=== PATIENT | male | born 2000 | race African-American/Black ===

== ENCOUNTER 2019-09-18 08:16 | Emergency (ER) | payer OTHER ==
[~2019-09-18] VITALS: Ht 188 cm; Wt 83.5 kg
[2019-09-18] MEDS ORDERED: NS 1,000 ML IV ONE (09:00)
[2019-09-18] MEDS ORDERED: GI COCKTAIL 50ML BTL(HYOSCYAMINE/MAALOX/LIDOCAINE VISCOUS)(1:3:1) PO ONE (09:00)
[2019-09-18] MEDS ORDERED: ONDANSETRON 4MG/2ML VIAL (J2405) IV ONE (09:00)
[2019-09-18 09:17] LABS: BASO % 0.6 % (0.0-1.0); EOS # 0.2 10^3/uL (0.0-0.5); HEMATOCRIT 48.4 % (42.0-52.0); HEMOGLOBIN 15.5 g/dl (13.5-17.5); LYMPH # 1.8 10^3/uL (1.5-5.0); MEAN CORPUSCULAR HEMOGLOBIN 28.3 pg (27.0-33.0); MEAN CORPUSCULAR VOLUME 88.3 fl (80.0-96.0); MONO # 0.5 10^3/uL (0.0-0.8); MONO % 7.5 % (0.0-5.0); NEUTROPHILS % 60.7 % (36.0-66.0); PLATELET COUNT, AUTOMATED 245 10^3/uL (150-450); RED BLOOD COUNT 5.48 10^6/uL (4.30-6.10); WHITE BLOOD COUNT 6.6 10^3/uL (4.0-10.0)
[2019-09-18] MEDS ORDERED: ISOVUE-370 76% 100ML VIAL (Q9967) As Ordered ONE (09:19)
[2019-09-18 09:55] LABS: ALBUMIN 4.6 GM/DL (3.2-5.2); ALT/SGPT 24 U/L (12-78); BILIRUBIN,DIRECT < 0.1 MG/DL (0.0-0.2); BILIRUBIN,TOTAL 0.6 MG/DL (0.2-1.0); LIPASE 71 U/L (73-393); TOTAL PROTEIN 8.5 GM/DL (6.4-8.2)
--- NOTE | 2019-09-18 10:09 | REP ---
CT ABDOMEN AND PELVIS WITH IV CONTRAST: TECHNIQUE: Axial contrast enhanced images from the lung bases to the pubic symphysis using 100 mL Isovue 370 intravenous contrast material with multiplanar reformations. Visualized lung bases are clear. The liver demonstrates focal fatty infiltration anteriorly along the fissure for a ligamentum teres with no other significant abnormality. The gallbladder is grossly unremarkable. Spleen is normal in size with no intrinsic abnormality. The adrenal glands are normal. No pancreatic mass is seen. There is no hydronephrosis bilaterally. There is no abdominal aortic aneurysm. There is no adenopathy. There is no free air or free fluid. There is no bowel wall thickening. The appendix is normal. No pelvic mass is seen. Urinary bladder is not well distended and not well evaluated. IMPRESSION: No acute abnormalities detected. Electronically Signed by Damien Rodriguez MD 09/18/2019 10:32 A
[2019-09-18] MEDS ORDERED: SUCR1TA PO (10:24)
[2019-09-18 10:34] VITALS: BP 141/74
== END 2019-09-18 10:38 | disposition home or self-care (01) ==
LOC: M ED 08:16
DX: R10.13 Epigastric pain (principal); F17.200 Nicotine dependence, unspecified, uncomplicated
CPT/HCPCS: 74177; 80047; 80076; 81001; 83690; 85025; 93041; 96374; 99284; J2405; Q9967

== ENCOUNTER 2019-12-23 13:45 | Emergency (ER) | payer OTHER ==
[~2019-12-23] VITALS: Ht 188 cm; Wt 84.1 kg
[~2019-12-23 13:45] MED LIST: SUCR1TA PO
[2019-12-23] MEDS ORDERED: PANTOPRAZOLE 40MG VIAL (C9113 PER 1) IV ONE (14:15)
[2019-12-23] MEDS ORDERED: KETOROLAC 30 MG/ML 1ML VIAL IV ONE (14:15)
[2019-12-23 14:30] LABS: BASO % 0.4 % (0.0-1.0); EOS # 0.1 10^3/uL (0.0-0.5); EOS % 1.1 % (0.0-3.0); HEMATOCRIT 50.1 % (42.0-52.0); HEMOGLOBIN 16.6 g/dl (13.5-17.5); LYMPH # 1.6 10^3/uL (1.5-5.0); LYMPH % 19.1 % (24.0-44.0); MEAN CORPUSCULAR HEMOGLOBIN 28.8 pg (27.0-33.0); MEAN CORPUSCULAR HGB CONC 33.1 g/dl (32.0-36.5); MEAN CORPUSCULAR VOLUME 86.8 fl (80.0-96.0); MONO # 0.6 10^3/uL (0.0-0.8); MONO % 6.7 % (0.0-5.0); NEUTROPHILS # 5.9 10^3/uL (1.5-8.5); NEUTROPHILS % 72.5 % (36.0-66.0); PLATELET COUNT, AUTOMATED 276 10^3/uL (150-450); RED BLOOD COUNT 5.77 10^6/uL (4.30-6.10); WHITE BLOOD COUNT 8.2 10^3/uL (4.0-10.0)
[2019-12-23 15:04] LABS: ALBUMIN 4.8 GM/DL (3.2-5.2); BILIRUBIN,DIRECT 0.3 MG/DL (0.0-0.2); BILIRUBIN,TOTAL 0.9 MG/DL (0.2-1.0); TOTAL PROTEIN 8.3 GM/DL (6.4-8.2)
[2019-12-23 15:30] VITALS: BP 131/78
--- NOTE | 2019-12-23 15:42 | REP ---
Clinical: Right upper quadrant pain. Technique: Real time humphries scale ultrasound examination using curved array transducer. Findings: Liver and pancreas are normal in contour, size, echogenicity without focal hepatic or pancreatic lesion identified. Gallbladder demonstrates multiple small gallstones/gravel with mild wall thickening, but no pericholecystic fluid or biliary ductal dilatation. Common bile duct measures 3.7 mm diameter. Right kidney is normal in reniform shape without hydronephrosis and measures 11.1 x 5.1 x 3.7 cm. No ascites in the visualized right upper quadrant. Impression: 1. Cholelithiasis with mild gallbladder wall thickening. Findings are nonspecific and require clinical correlation. No biliary ductal dilatation. Electronically Signed by Jung Roman MD 12/23/2019 03:33 P
[2019-12-23] MEDS ORDERED: diphenhydrAMINE 50MG/ML VIAL (J1200) IV ONE (15:45)
== END 2019-12-23 15:57 | disposition home or self-care (01) ==
LOC: M ED 13:45
DX: K80.20 Calculus of gallbladder without cholecystitis without obstruction (principal)
CPT/HCPCS: 76705; 80047; 80076; 83690; 85025; 96374; 96375; 99284; C9113; J1885

== ENCOUNTER 2020-04-28 21:33 | Emergency (ER) | payer OTHER ==
[~2020-04-28] VITALS: Ht 188 cm; Wt 77.3 kg
[2020-04-28 21:34] VITALS: BP 144/92
[2020-04-29] MEDS ORDERED: KEFL500C17 PO (02:32)
== END 2020-04-28 22:17 | disposition left against medical advice (07) ==
LOC: M ED 21:33
DX: Z53.21 Procedure and treatment not carried out due to patient leaving prior to being seen by health care provider (principal)

== ENCOUNTER 2020-04-28 23:23 | Emergency (ER) | payer OTHER ==
[~2020-04-28] VITALS: Ht 188 cm; Wt 77.3 kg
--- NOTE | 2020-04-29 00:55 | REPVR ---
PROCEDURE INFORMATION: Exam: XR Left Hand Exam date and time: 04/29/2020 12:11 AM Age: 19 years old Clinical indication: Injury or trauma; Other: Broke glass in hand; Laceration; Left; Injury details: Lac in area of proximal 3rd/4th digits. Bb marker placed for final image TECHNIQUE: Imaging protocol: XR Left hand. Views: 3 or more views. COMPARISON: No relevant prior studies available. FINDINGS: Bones/joints: Negative ulnar variance with remodeling at the distal radioulnar articulation. No fracture. Soft tissues: Evidence of laceration of the base of the middle finger with minimal radiopaque foreign bodies at the ventral aspect of the proximal aspect of the proximal phalanx of the 3rd finger and 3rd metacarpophalangeal joint. These are punctate to 1x2 mm in size. IMPRESSION: 1. Laceration at the palmar base of the 3rd finger with several minimal radiopaque foreign bodies in the area. 2. Negative ulnar variance with remodeling of the distal radioulnar articulation. 3. No fractures. Electronically signed by: Yaron Grant On 04/29/2020 00:55:25 AM
[2020-04-29] MEDS ORDERED: LIDOCAINE 1% MDV 20ML VIAL SC ONE (01:45)
[2020-04-29] MEDS ORDERED: NEOSPORIN OINT 0.9 GM PKT TOP ONE (02:30)
[2020-04-29] MEDS ORDERED: CEPHALEXIN 500 MG CAP PO ONE (02:30)
[2020-04-29] MEDS ORDERED: KEFL500C17 PO (02:32)
[2020-04-29 02:45] VITALS: BP 142/85
--- NOTE | 2020-04-29 02:52 | REPVR ---
PROCEDURE INFORMATION: Exam: XR Left Hand Exam date and time: 04/29/2020 2:38 AM Age: 19 years old Clinical indication: Screening exam; Removal of glass frags; Additional info: Foreign body TECHNIQUE: Imaging protocol: XR Left hand. Views: 1 or 2 views. COMPARISON: CR Hand, complete LEFT 04/29/2020 12:04 AM FINDINGS: Bones/joints: Negative ulnar variance with remodeling of the distal radioulnar articulation. Soft tissues: Minimal radiopaque foreign bodies are again noted along the palmar aspect of the base of the middle finger and probably along the palmar aspect of the proximal index finger. The appearance is similar to a prior study. IMPRESSION: 1. Negative ulnar variance with remodeling of the distal radioulnar articulation. 2. Minimal radiopaque foreign bodies are noted along the ventral aspect of the proximal index and middle fingers and are similar to a study done earlier in the day. Electronically signed by: Yaron Grant On 04/29/2020 02:52:19 AM
--- NOTE | 2020-04-30 09:37 | ED PDOC ---
Post-Departure Follow-Up left hand xray faxed to [facility] for fu Master Duffy MD Apr 30, 2020 09:37
== END 2020-04-29 02:52 | disposition home or self-care (01) ==
LOC: M ED 23:23
DX: S61.412A Laceration without foreign body of left hand, initial encounter (principal); W25.XXXA Contact with sharp glass, initial encounter; Y92.009 Unspecified place in unspecified non-institutional (private) residence as the place of occurrence of the external cause; Y93.89 Activity, other specified; Y99.8 Other external cause status; F17.200 Nicotine dependence, unspecified, uncomplicated

== ENCOUNTER 2020-08-25 10:00 | Emergency (ER) | payer OTHER ==
[~2020-08-25] VITALS: Ht 190.5 cm; Wt 80.2 kg
[~2020-08-25 10:00] MED LIST changes: +KEFL500C17 PO
[2020-08-25] MEDS ORDERED: IBUP1TAB7 PO (10:14)
[2020-08-25] MEDS ORDERED: GI COCKTAIL 50ML BTL(HYOSCYAMINE/MAALOX/LIDOCAINE VISCOUS)(1:3:1) PO ONE (10:35)
[2020-08-25 10:55] LABS: BASO % 0.5 % (0.0-1.0); EOS # 0.2 10^3/uL (0.0-0.5); EOS % 2.9 % (0.0-3.0); HEMATOCRIT 44.9 % (42.0-52.0); HEMOGLOBIN 14.4 g/dl (13.5-17.5); LYMPH # 1.7 10^3/uL (1.5-5.0); LYMPH % 28.8 % (24.0-44.0); MEAN CORPUSCULAR HGB CONC 32.1 g/dl (32.0-36.5); MEAN CORPUSCULAR VOLUME 87.2 fl (80.0-96.0); MONO # 0.5 10^3/uL (0.0-0.8); MONO % 8.3 % (2.0-8.0); NEUTROPHILS # 3.5 10^3/uL (1.5-8.5); NEUTROPHILS % 59.3 % (36.0-66.0); PLATELET COUNT, AUTOMATED 249 10^3/uL (150-450); RED BLOOD COUNT 5.15 10^6/uL (4.30-6.10); WHITE BLOOD COUNT 5.9 10^3/uL (4.0-10.0)
--- NOTE | 2020-08-25 11:13 | REP ---
INDICATION: RUQ pain, known gallstones COMPARISON: None. TECHNIQUE: Real time humphries scale ultrasound examination using curved array transducer. FINDINGS: Gallbladder demonstrates multiple gallstones along with mild wall thickening to 3.7 mm diameter and associated sonographic Mendiola sign. There appears to be a stone lodged in the neck of the gallbladder. Common bile duct measures 3.6 mm diameter. Liver and visualized portions of the pancreas are normal. Right kidney is normal in reniform shape without hydronephrosis and measures 10.8 x 5.1 x 3.7 cm. No ascites in the visualized right upper quadrant. IMPRESSION: Cholelithiasis and findings suggesting acute cholecystitis. <Electronically signed by Jung Roman > 08/25/20 [id number]
[2020-08-25 11:30] LABS: ALBUMIN 4.6 GM/DL (3.2-5.2); ALT/SGPT 30 U/L (12-78); BILIRUBIN,DIRECT 0.1 MG/DL (0.0-0.2); BILIRUBIN,TOTAL 0.4 MG/DL (0.2-1.0); BLOOD UREA NITROGEN 12 MG/DL (7-18); CALCIUM LEVEL 9.4 MG/DL (8.5-10.1); CARBON DIOXIDE LEVEL 30 MEQ/L (21-32); CHLORIDE LEVEL 107 MEQ/L (98-107); CREATININE FOR GFR 1.05 MG/DL (0.70-1.30); GLOMERULAR FILTRATION RATE > 60.0 (>60); GLUCOSE, FASTING 97 MG/DL (70-100); LIPASE 106 U/L (73-393); POTASSIUM SERUM 4.9 MEQ/L (3.5-5.1); SODIUM LEVEL 140 MEQ/L (136-145); TOTAL PROTEIN 7.9 GM/DL (6.4-8.2)
--- NOTE | 2020-08-25 11:49 | REP ---
INDICATION: wheezing expiratory left upper and lower COMPARISON: None. TECHNIQUE: PA and lateral. FINDINGS: The mediastinum and cardiac silhouette are normal. The lung vasquez are clear and without acute consolidation, effusion, or pneumothorax. The skeletal structures are intact and normal. IMPRESSION: No acute cardiopulmonary process. <Electronically signed by Jung Roman > 08/25/20 [id number]
[2020-08-25 12:20] VITALS: BP 136/61
== END 2020-08-25 12:30 | disposition home or self-care (01) ==
LOC: M ED 10:00
DX: K80.70 Calculus of gallbladder and bile duct without cholecystitis without obstruction (principal); F17.210 Nicotine dependence, cigarettes, uncomplicated

== ENCOUNTER → 2020-09-15 | Outpatient (CLI) | payer OTHER ==
[~2020-09-15] MED LIST changes: +IBUP1TAB7 PO
== END ==
LOC: M LABSMTC 10:16
PROVIDERS: ATTEND Anesthesiology
DX: Z01.812 Encounter for preprocedural laboratory examination (principal)

== ENCOUNTER 2020-09-19 10:48 | Day surgery (SDC) | payer OTHER ==
[~2020-09-19] VITALS: Ht 188 cm; Wt 79.4 kg
[~2020-09-19 10:48] MED LIST changes: +LR 1,000 ML IV ONE; +MIDAZOLAM INJ 2MG/2ML VIAL (J2250 PER 1MG) As Ordered ONE; +fentaNYL 100 MCG/2 ML INJECTION (J3010) As Ordered ONE
[2020-09-19] MEDS ORDERED: LACRILUBE (AKWA TEARS) OPHTH OINT 3.5 GM As Ordered ONE (11:13)
[2020-09-19] MEDS ORDERED: ACETAMINOPHEN 1000MG 100ML IV BTL (OFIRMEV) (J0131 PER 10MG) As Ordered ONE (11:13)
[2020-09-19] MEDS ORDERED: ONDANSETRON 4MG/2ML VIAL As Ordered ONE (11:13)
[2020-09-19] MEDS ORDERED: SUGAMMADEX SODIUM 500 MG/5 ML VIAL (BRIDION) As Ordered ONE (11:13)
[2020-09-19] MEDS ORDERED: KETOROLAC 60MG 2ML VIAL As Ordered ONE (11:13)
[2020-09-19] MEDS ORDERED: propofoL 200 MG/20 ML VIAL As Ordered ONE (11:13)
[2020-09-19] MEDS ORDERED: LIDOCAINE 2% 100MG/5ML SDV (FOR ANES.) As Ordered ONE (11:13)
[2020-09-19] MEDS ORDERED: dexameTHASONE 4 MG/ML 1ML VIAL (J1100 PER 1MG) As Ordered ONE (11:13)
[2020-09-19] MEDS ORDERED: ROCURONIUM BROMIDE 50 MG/5 ML VIAL As Ordered ONE (11:13)
[2020-09-19] MEDS ORDERED: HYDROmorphone HCL 2 MG/ML 1ML VIAL (J1170) As Ordered ONE ×2 (12:41→12:45)
[2020-09-19] MEDS: BUPIVACAINE/EPIN 0.25% 30 ML VIAL As Ordered ONE ×2 (13:19→13:20)
[2020-09-19] MEDS ORDERED: PERCOCET 5MG/325MG TAB PO PRN (13:55)
[2020-09-19] MEDS ORDERED: NORCO, ANEXSIA 5/325MG TABLET (HYDROcodone/ACETAMINOPHEN) PO PRN (13:55)
[2020-09-19] MEDS ORDERED: ONDANSETRON 4MG/2ML VIAL IV PRN (13:55)
[2020-09-19] MEDS ORDERED: fentaNYL 100 MCG/2 ML INJECTION (J3010) IV PRN (13:55)
[2020-09-19] MEDS ORDERED: METOCLOPRAMIDE INJ 10MG/2ML VIAL (J2765 PER 1) IV PRN (13:55)
[2020-09-19] MEDS ORDERED: LR 1,000 ML IV SCH (13:55)
--- NOTE | 2020-09-19 14:42 | RO ---
OPERATIVE NOTE DATE OF OPERATION: 09/19/2020 PREOPERATIVE DIAGNOSIS: Symptomatic cholelithiasis. POSTOPERATIVE DIAGNOSIS: Symptomatic cholelithiasis. PROCEDURE: Robotic cholecystectomy. SURGEON: Damien Latham DO [employer] INVESTIGATOR: Yady Aceves ANESTHESIA: General. EBL: 5. COMPLICATIONS: None. INDICATIONS FOR PROCEDURE: The patient is a 20-year-old male who presents with persistent right upper quadrant pain and found to have symptomatic cholelithiasis. Recommendation was to proceed with robotic cholecystectomy. Risks and benefits of the procedure not limited to but including bleeding, infection, hernias, damage to surrounding structures, need for further surgery were discussed in detail with the patient, informed consent was obtained and procedure planned. DESCRIPTION OF PROCEDURE: The patient was brought back to operating room 7. After sufficient sedation the abdomen was sterilely prepped and draped. Time out was done to confirm proper patient, proper procedure. Following that an 8 mm incision was made in left upper quadrant, Veress needle was inserted and abdomen was insufflated to 15 mmHg. Veress needle was removed. 8 mm Optiview port was used to gain access to the abdomen. Once the abdomen was entered three more ports were placed in the right upper quadrant. Robot was docked to the ports. From the console the fundus of the gallbladder was elevated up to his right shoulder. Peritoneal adhesions and omental adhesions were carefully dissected free from the gallbladder using sharp and blunt dissection. The neck of the gallbladder was dissected free using blunt and sharp dissection until the cystic duct and cystic artery were both clearly identified. Once they were both easily identified they were both were doubly clipped and cut. The gallbladder was then dissected free from the gallbladder fossa, removed from the abdomen with 5 mm Endo Catch bag. The right upper quadrant was then aspirated to make sure there was hemostasis. The port site where the gallbladder was removed had to be stretched for removal of the gallbladder due to large volume of stones. That incision was closed from the inside using 2-0 V-Loc suture. Once that was completed the needle was removed from the abdomen. The ports were removed. The abdomen was desufflated. Skin incisions were closed with 4-0 Vicryl subcuticular suture. The abdomen was cleaned and dried; Steri-Strips, 4 x 4 and tape were applied.
[2020-09-19 15:10] VITALS: BP 153/85
== END 2020-09-19 15:10 | disposition home or self-care (01) ==
LOC: M SDC 10:48
PROVIDERS: ATTEND Surgery
DX: K80.20 Calculus of gallbladder without cholecystitis without obstruction (principal); F41.9 Anxiety disorder, unspecified; F17.290 Nicotine dependence, other tobacco product, uncomplicated; F12.10 Cannabis abuse, uncomplicated
CPT/HCPCS: 47562; 88304; J0131; J1100; J1170; J1885; J2250; J2405; J3010; S2900